=== PATIENT | female | born 1970 | race Caucasian/White ===

== ENCOUNTER 2016-11-15 12:22 | Emergency (ER) | payer OTHER ==
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
[~2016-11-15 12:22] MED LIST: ALBUTEROL 0.5ML INH; ALBUTEROL17 G1 IH; ALBUTEROL17 GM; ALBUTEROL17 GM INH; DARVOCET-N 1001 TAB PO; DOXYCYCLINE HY100 M1 PO; FISH OIL300 MG; METFORMIN HCL500 M1 PO; METFORMIN PO; MULTI VITAMIN1 EACH; NAPROXEN PO; PHENERGAN PO; PRAVACHOL; PREDNISONE10 MG PO; PROAIR; PROAIR HFA8.5 GM IH; PROVERA10 MG PO; PROZAC PO
[2016-11-15] MEDS ORDERED: METFORMIN (12:28)
[2016-11-15] MEDS ORDERED: BIRTH CONTROL PILL (12:28)
[2016-11-15] MEDS ORDERED: ALBUTEROL17 GM (12:28)
[2016-11-15] MEDS ORDERED: STAHIST AD TAB1 EACH (12:28)
[2016-11-15] MEDS ORDERED: ALDACTONE (12:29)
== END 2016-11-15 13:48 | disposition home or self-care (01) ==
LOC: SED 12:22
DX: S60.212A Contusion of left wrist, initial encounter (principal); Z88.5 Allergy status to narcotic agent; Z91.040 Latex allergy status; Z88.8 Allergy status to other drugs, medicaments and biological substances; W22.8XXA Striking against or struck by other objects, initial encounter; Y92.69 Other specified industrial and construction area as the place of occurrence of the external cause
CPT/HCPCS: 29280; 73110; 73130; 99283